=== PATIENT | female | born 1960 | race African-American/Black ===

== ENCOUNTER 2016-10-14 14:46 | Emergency (ER) | payer OTHER ==
[~2016-10-14] VITALS: Ht 172.7 cm; Wt 69.0 kg
[~2016-10-14 14:46] MED LIST: FURO40TA5 PO; LOSA25TA3 PO; Metoprolol Tartrate PO; Spironolactone PO
[2016-10-14 14:48] VITALS: BP 149/89
== END 2016-10-14 17:21 | disposition left against medical advice (07) ==
LOC: ER 14:52
DX: F10.129 Alcohol abuse with intoxication, unspecified (principal); E11.9 Type 2 diabetes mellitus without complications; I10 Essential (primary) hypertension; G40.909 Epilepsy, unspecified, not intractable, without status epilepticus; Y90.9 Presence of alcohol in blood, level not specified; Z88.0 Allergy status to penicillin
CPT/HCPCS: 74000; 99283

== ENCOUNTER 2016-11-17 20:06 | Emergency (ER) | payer OTHER ==
[~2016-11-17] VITALS: Ht 172.7 cm; Wt 77.0 kg
[2016-11-17 20:15] VITALS: BP 148/56
== END 2016-11-17 22:00 | disposition left against medical advice (07) ==
LOC: ER 20:06
DX: M79.1 Myalgia (principal); I10 Essential (primary) hypertension; Z88.0 Allergy status to penicillin

== ENCOUNTER 2016-11-21 16:09 | Emergency (ER) | payer OTHER ==
[~2016-11-21] VITALS: Ht 170.2 cm; Wt 90.0 kg
[2016-11-21 16:11] VITALS: BP 138/89
== END 2016-11-21 17:21 | disposition left against medical advice (07) ==
LOC: ER 16:18
DX: F91.9 Conduct disorder, unspecified (principal); I10 Essential (primary) hypertension; Z88.0 Allergy status to penicillin
CPT/HCPCS: 99283

== ENCOUNTER 2016-12-17 08:01 | Emergency (ER) | payer OTHER ==
[~2016-12-17] VITALS: Ht 170.2 cm; Wt 80.0 kg
[2016-12-17 08:48] LABS: BASOPHILS % 2.1 % (0.0-2.0); EOSINOPHILS % 1.9 % (0.0-5.0); HEMATOCRIT. 39.3 % (36.0-48.0); HEMOGLOBIN. 12.8 g/dL (12.0-16.0); LYMPHOCYTES % 53.7 % (20.0-50.0); MEAN CORPUSCULAR HEMOGLOBIN 27.2 pg (28.0-32.0); MEAN CORPUSCULAR VOLUME 83.7 fL (81.0-99.0); MEAN PLATELET VOLUME 8.5 fl (7.4-10.4); MONOCYTES % 7.8 % (2.0-8.0); NEUTROPHILS % 34.5 % (40.0-76.0); PLATELET 148 x1000/uL (130-400); RED CELL DISTRIBUTION WIDTH 18.3 % (11.6-14.6)
[2016-12-17 08:55] LABS: CARBON DIOXIDE 26 mEq/L (21-32); CHLORIDE 112 mEq/L (98-107)
[2016-12-17 09:07] VITALS: BP 141/81
[2016-12-17] MEDS ORDERED: ACETAMINOPHEN 325MG TABLET PO ONE (09:30)
[2016-12-18] MEDS ORDERED: CLONIDINE 0.1MG TABLET PO PRN (10:00)
[2016-12-18] MEDS ORDERED: MVI, ADULT NO.1 10 ML, FOLIC ACID 1 MG, THIAMINE HCL 100 MG in SODIUM CHLORIDE 0.9% 1,0... IV ONE ×4 (10:00)
[2016-12-18] MEDS ORDERED: ONDANSETRON HCL 4MG/2ML VIAL IV PRN (10:00)
[2016-12-18] MEDS ORDERED: LOSARTAN POTASSIUM 25 MG TABLET PO SCH (10:00)
[2016-12-18] MEDS ORDERED: IPRATROPIUM/ALBUTEROL 0.5-3(2.5)MG/3ML NEB INH PRN (10:00)
[2016-12-18] MEDS ORDERED: DEXTROSE 50% WATER 50ML SYRINGE IV PRN (10:00)
[2016-12-18] MEDS ORDERED: LORAZEPAM 2MG/ML CPJ IV PRN (10:00)
[2016-12-18] MEDS ORDERED: BLOOD SUGAR DIAGNOSTIC STRIP TEST SCH (13:00)
[2016-12-18] MEDS ORDERED: INSULIN LISPRO 100 UNITS/ML SUBCUT SCH ×4 (13:20)
[2016-12-18 14:45] LABS: CREATINE KINASE MB FRACTION 3.2 ng/mL (0.5-3.6)
[2016-12-18 14:56] LABS: TROPONIN I 0.64 ng/mL (0.00-0.04)
[2016-12-18] MEDS ORDERED: FUROSEMIDE 40MG TABLET PO SCH (15:00)
[2016-12-19] MEDS ORDERED: METOPROLOL TARTRATE 25MG TABLET PO SCH (21:00)
== END 2016-12-17 09:55 | disposition left against medical advice (07) ==
LOC: ER 08:06
DX: B34.9 Viral infection, unspecified (principal); I10 Essential (primary) hypertension; E11.9 Type 2 diabetes mellitus without complications; Z88.0 Allergy status to penicillin
CPT/HCPCS: 36415; 71010; 80053; 85025; 99285; J3411; J3490; 82550; 82553; 84484; G0482; J7030

== ENCOUNTER 2020-01-25 15:08 | Emergency (ER) | payer OTHER ==
[~2020-01-25] VITALS: Ht 167.6 cm; Wt 79.0 kg
[2020-01-25] MEDS ORDERED: SODIUM CHLORIDE 0.9% 1,000 ML IV ONE (15:25)
[2020-01-25] MEDS ORDERED: ONDANSETRON HCL 4MG/2ML INJ IV ONE (15:30)
[2020-01-25 15:52] LABS: BASOPHILS % 2.5 % (0.0-2.0); EOSINOPHILS % 2.1 % (0.0-5.0); HEMOGLOBIN. 14.3 g/dL (12.0-16.0); MEAN CORPUSCULAR HEMOGLOBIN 32.3 pg (28.0-32.0); MEAN CORPUSCULAR VOLUME 94.7 fL (81.0-99.0); MEAN PLATELET VOLUME 8.3 fl (7.4-10.4); MONOCYTES % 5.9 % (2.0-8.0); NEUTROPHILS % 36.5 % (40.0-76.0); PLATELET 172 x1000/uL (130-400); RED BLOOD CELL COUNT 4.44 mill/uL (4.2-5.4); RED CELL DISTRIBUTION WIDTH 18.1 % (11.6-14.6)
[2020-01-25 15:58] LABS: CHLORIDE 109 mEq/L (98-107)
[2020-01-25 16:00] VITALS: BP 143/77
[2020-01-25 16:52] LABS: ETHANOL BLOOD 332 mg/dL
== END 2020-01-25 18:04 | disposition left against medical advice (07) ==
LOC: ER 15:15
DX: F10.129 Alcohol abuse with intoxication, unspecified (principal); Y90.8 Blood alcohol level of 240 mg/100 ml or more; S02.82XA Fracture of other specified skull and facial bones, left side, initial encounter for closed fracture; R40.2410 Glasgow coma scale score 13-15, unspecified time; W18.30XA Fall on same level, unspecified, initial encounter; I10 Essential (primary) hypertension; E11.9 Type 2 diabetes mellitus without complications; Y93.89 Activity, other specified; Y92.9 Unspecified place or not applicable; Z88.0 Allergy status to penicillin
CPT/HCPCS: 36415; 70450; 70486; 72125; 80053; 80307; 80320; 80329; 85025; 96361; 96374; 99285; J2405; J7030; G0480

== ENCOUNTER 2020-02-19 18:26 | Emergency (ER) | payer OTHER ==
[~2020-02-19] VITALS: Ht 170.2 cm; Wt 80.0 kg
[2020-02-19 18:32] VITALS: BP 136/74
== END 2020-02-19 19:00 | disposition left against medical advice (07) ==
LOC: ER 18:26
DX: Z53.21 Procedure and treatment not carried out due to patient leaving prior to being seen by health care provider (principal)